=== PATIENT | male | born 1995 | race African-American/Black ===

== ENCOUNTER 2023-12-25 21:31 | Emergency (ER) | payer SELFPAY ==
[2023-12-25 21:34] VITALS: BP 111/83; BP 140/102; PULSE 107; PULSE 115; RESP 18; O2SAT 94; O2SAT 97; BMI 38.6
--- NOTE | 2023-12-25 21:51 | ED.GENADULT ---
HPI - General Adult General Chief complaint: Dyspnea Stated complaint: SOB,CHEST PAIN Time Seen by Provider: 12/25/23 21:35 Source: patient Mode of arrival: EMS Limitations: other (Deaf mute) History of Present Illness HPI narrative: Patient comes to the emergency room via ambulance complaining of an asthma exacerbation. History was obtained via [facility] mother tester. Patient states that he ran out of his medication approximately a month ago. Patient also states that he has not had any of his diabetic medications for about a month as well. Patient states that he is in the process of moving between [place], [place] to [place]. Patient states that he ran out of his inhaler. According to EMS, they gave him a DuoNeb treatment, no steroids, patient states that breathing corbett he is back to baseline. Per EMS, patient's glucose is above 300. Related Data Previous Rx's Medication Instructions Recorded albuterol sulfate 90 mcg/actuation 2 puff inhalation Q4-6H PRN 12/25/23 aerosol inhaler shortness of breath or wheezing #8.5 grams dulaglutide 4.5 mg/0.5 mL 4.5 mg (0.5 mL) subcut QWEEK #2 mL 12/25/23 subcutaneous pen injector (Trulicity) glucagon HCl 1 mg solution for 1 mg subcut Q20M PRN hypoglycemia 12/25/23 injection (Glucagon (HCl) #1 ea Emergency Kit) metformin 500 mg tablet 500 mg PO BID #90 tabs 12/25/23 Allergies Allergy/AdvReac Type Severity Reaction Status Date / Time No Known Allergies Allergy Verified 12/25/23 21:47 Review of Systems Review of Systems: Constitutional : No Weight loss, No Fever, No Chills, No Night Sweats, No Fatigue, No Malaise ENT/Mouth : No Hearing loss, No Ear Pain, No Nasal Congestion, No Sinus Pain, No Hoarseness, No sore throat, No Rhinorrhea, No Swallowing Difficulty Eyes: No Eye Pain, No Swelling, No Redness, No Foreign Body, No Discharge, No Vision Changes Cardiovascular : No Chest Pain, No SOB, No Dyspnea on Exertion, No Orthopnea, No Edema, No Palpitations Respiratory : No Cough, No Sputum, complaining of Wheezing, No Smoke Exposure, No Dyspnea Gastrointestinal : No Nausea, No Vomiting, No Diarrhea, No Constipation, No abdominal Pain, No Hematochezia, No Melena Genitourinary : no irregular bleeding, No Dysuria, No Urinary Frequency, No Hematuria, No Urinary Incontinence, No Urgency, No Flank Pain, No Urinary Flow Changes, No Hesitancy Musculoskeletal : No joint pain, No Myalgias, No Joint Swelling Skin : No Skin Lesions, No rash Neuro : No Weakness, No Numbness, No Paresthesias, No Loss of Consciousness, No Dizziness, No Headache Psych : No Anxiety/Panic, No Depression, No SI/HI/AH/VH, No Social Issues, Heme/Lymph: No Bruising, No Bleeding,No Lymphadenopathy Endocrine : Complaining of high blood sugar, No Polyuria, No Polydipsia, No Temperature Intolerance [facility] Past Medical History Medical History (Updated 12/25/23 @ 22:01 by Yarelis Lopez MD) Type 2 diabetes mellitus Asthma Social History Social History Smoked in Last 30 Days: No Use of substances other than those prescribed or required for medical reasons: No Advance Directives: No Advance Directives Information Provided: No Physical Exam ED Vital Signs: Vital Signs - 24 hr 12/25/23 21:34 Pulse Rate 107 H Respiratory Rate 18 Blood Pressure 111/83 Pulse Oximetry 97 Oxygen Delivery Method Room Air BMI result Body Mass Index 38.6 Const Other: Appearance: Alert. Oriented X3. No acute distress. Eyes: Pupils equal, round and reactive to light. ENT: Pharynx normal. Neck: Normal inspection. Neck supple. No lymph nodes noted. No crepitus CVS: Normal heart rate and rhythm. Pulses normal. Normal S1 and S2 Respiratory: No respiratory distress. Breath sounds normal. No Wheezing. No rales Abdomen: Soft and nontender. No rigidity. No distention. Skin: Skin warm and dry. Normal skin color. Normal skin turgor. Extremities: No lower extremity edema. No Lacerations. No Rash Neuro: Oriented X 3. No motor deficit. No sensory deficit. Moving all extremities. No slurred speech. CN 2 through 12 grossly intact Psych: calm, cooperative, normal affect Course Course Course Narrative: At this time, patient is no longer wheezing, oxygen saturation 95%. -we were unable to get in touch with the patient's pharmacy, as it is closed now in [place]. Patient requesting paper scripts -patient will be given subcutaneous insulin and point of care will be rechecked Medications Administered Discontinued Medications Generic Name Dose Route Start Last Admin Trade Name Freq PRN Reason Stop Dose Admin Insulin Human Lispro 10 unit 12/25/23 21:55 12/25/23 22:18 Insulin Lispro 100 Unit/Ml 3 Ml Vial SUBCUT 12/25/23 21:56 Not Given ONCE ONE Prednisone 60 mg 12/25/23 21:47 12/25/23 22:17 Prednisone 20 Mg Tablet PO 12/25/23 21:48 60 mg ONCE ONE Administration Medical Decision Making Medical Decision Making [facility] Narrative: -at this time, patient feeling much better. Patient requesting medication refills -as mentioned above, patient already received a DuoNeb, patient's breathing is back to normal. -I was informed by the patient's nurse that before they gave any medication to the patient, his glucose was 255. At this time, no need for any medications or fluids for hyperglycemia. Differential Diagnosis Differential Diagnoses: The differential diagnosis associated with the presentation includes (Asthma exacerbation, viral syndrome, hyperglycemia, medication noncompliance) Lab Data Labs: Lab Results 12/25/23 Range/Units 22:09 POC Glucose 252 H (60-115) mg/dL Critical Care Time Critical Care Time Critical Care Time: Yes Total Critical Care Time: 45 Attestation: I have personally provided critical care time. Time includes review of lab data, radiology results, discussion with consultants, and monitoring for potential decompensation. Intervention performed as documented. Discharge Plan Discharge Clinical Impression: Asthma, Hyperglycemia Patient Disposition: Home, Self-Care Instructions: Asthma (ED), Diabetic Hyperglycemia (ED) Additional Instructions: Please follow-up with your primary care physician tomorrow. If you have any worsening or new symptoms, please return to the emergency room or call 911 Prescriptions: New metformin 500 mg tablet 500 mg PO BID Qty: 90 1RF Trulicity 4.5 mg/0.5 mL pen injector 4.5 mg subcut QWEEK Qty: 2 1RF albuterol sulfate 90 mcg/actuation HFA aerosol inhaler 2 puff inhalation Q4-6H PRN (Reason: shortness of breath or wheezing) Qty: 8.5 1RF glucagon HCl [Glucagon (HCl) Emergency Kit] 1 mg recon soln 1 mg subcut Q20M PRN (Reason: hypoglycemia) Qty: 1 0RF Rx Instructions: until target blood sugar attained
[2023-12-25 22:14] LABS: Glucose, Whole Blood 252 mg/dL (60-115)
[2023-12-25] MEDS: predniSONE 20 MG TABLET 60 MG PO (22:17)
--- NOTE | 2023-12-25 22:18 | PC.NURSE ---
After check of blood glucose, insulin order was cancelled by provider.
[2023-12-25 23:45] VITALS: BP 118/82; PULSE 98; RESP 18; O2SAT 97
== END 2023-12-25 23:47 | disposition home or self-care (01) ==
PROVIDERS: Emergency Provider Emergency Medicine
DX: R06.02 Shortness of breath (principal); J45.909 Unspecified asthma, uncomplicated; R73.9 Hyperglycemia, unspecified
CPT/HCPCS: 82947; 99283; 99284

== ENCOUNTER 2023-12-26 05:22 | Emergency (ER) | payer SELFPAY ==
[2023-12-26 05:26] VITALS: BP 128/79; PULSE 104; RESP 18; TEMP 36.4; O2SAT 95; BMI 46.1
[2023-12-26 05:42] LABS: Glucose, Whole Blood 460 mg/dL (60-115)
--- NOTE | 2023-12-26 07:01 | ED.GENADULT ---
HPI - General Adult General Chief complaint: General Medical Stated complaint: Blood sugar check Time Seen by Provider: 12/26/23 07:01 History of Present Illness HPI narrative: The patient is hard of hearing and communicates by sign language. He was interviewed using an ASL volunteer assistant on our computer volunteer assistant. The patient was here yesterday with a complaint of shortness of breath. He was felt to have an exacerbation of his asthma. He was treated with an updraft and given a dose of prednisone. He apparently is currently uninsured. He apparently recently moved to this area from [place], [place] with the plan of relocating to this area. He tells me that he returned to the emergency room because he could feel that his blood sugar was high. He was not really able to tell me how he could tell. He says that he has been on a lot of medications for his diabetes in the past. He has been on medications for 10 years he says. He says that he normally takes 100 units of Lantus insulin daily. He has not had this for at least a week. Related Data Previous Rx's Medication Instructions Recorded albuterol sulfate 90 mcg/actuation 2 puff inhalation Q4-6H PRN 12/25/23 aerosol inhaler shortness of breath or wheezing #8.5 grams dulaglutide 4.5 mg/0.5 mL 4.5 mg (0.5 mL) subcut QWEEK #2 mL 12/25/23 subcutaneous pen injector (Trulicity) glucagon HCl 1 mg solution for 1 mg subcut Q20M PRN hypoglycemia 12/25/23 injection (Glucagon (HCl) #1 ea Emergency Kit) metformin 500 mg tablet 500 mg PO BID #90 tabs 12/25/23 Allergies Allergy/AdvReac Type Severity Reaction Status Date / Time No Known Allergies Allergy Verified 12/25/23 21:47 Review of Systems Review of Systems: Yes all other systems are reviewed and are negative [facility] Past Medical History Medical History (Updated 12/26/23 @ 13:01 by Cesar Patel MD) Type 2 diabetes mellitus Asthma Social History Social History Smoked in Last 30 Days: No Use of substances other than those prescribed or required for medical reasons: No Advance Directives: No Advance Directives Information Provided: No Physical Exam ED Vital Signs: Vital Signs - 24 hr 12/26/23 05:26 12/26/23 08:32 Temperature 97.6 F Pulse Rate 104 H 100 Respiratory Rate 18 18 Blood Pressure 128/79 127/86 Pulse Oximetry 95 94 Oxygen Delivery Method Room Air Room Air BMI result Body Mass Index 46.1 Const Other: The patient was sleeping initially unsteady was very tired but was ultimately awake and alert and appropriate. With speech, lip reading, and we also used the senior interior designer machine. He has a very large man with a BMI of 46. He does not appear in acute distress HENMT Other: Face is symmetrical. Mucous membranes moist Eyes Other: Pupils are round equal, conjunctivae clear, extraocular movements intact Neck Other: Moving his neck easily Resp Effort & Inspection: normal respiratory effort Auscultation: clear to auscultation bilaterally Cardio Rate: regular rate Rhythm: regular rhythm Heart sounds: S1 normal heart sound present and S2 normal heart sound present GI Other: Abdomen is soft and nontender Skin Other: Skin is dry and unremarkable Neuro Other: The patient is hard of hearing but otherwise neurologically intact with a normal gait. Extrem Other: No pitting edema Medications Administered Discontinued Medications Generic Name Dose Route Start Last Admin Trade Name Titusq PRN Reason Stop Dose Admin Insulin Glargine 40 unit 12/26/23 08:30 12/26/23 09:26 Insulin Glargine,Hum.Rec.Anlog 100 Unit/Ml 10 Ml Vial SUBCUT 12/26/23 08:31 40 unit ONCE ONE Administration Insulin Glargine 20 unit 12/26/23 12:32 12/26/23 13:05 Insulin Glargine,Hum.Rec.Anlog 100 Unit/Ml 10 Ml Vial SUBCUT 12/26/23 12:33 20 unit ONCE ONE Administration Insulin Human Lispro 6 unit 12/26/23 07:45 12/26/23 08:08 Insulin Lispro 100 Unit/Ml 3 Ml Vial SUBCUT 12/26/23 07:46 6 unit ONCE ONE Administration Insulin Human Lispro 4 unit 12/26/23 12:32 12/26/23 13:06 Insulin Lispro 100 Unit/Ml 3 Ml Vial SUBCUT 12/26/23 12:33 4 unit ONCE ONE Administration Metformin HCl 500 mg 12/26/23 07:23 12/26/23 08:08 Metformin Hcl 500 Mg Tablet PO 12/26/23 07:24 500 mg ONCE ONE Administration Medical Decision Making Medical Decision Making MDM Narrative: The patient is a 28-year-old who describes a 10 year history of type 2 diabetes. He normally lives in [place] and does not have access to his usual medications. He was seen here yesterday for an asthma exacerbation and was given a dose of prednisone which has probably exacerbated his hyperglycemia. He has not seem in DKA . He seems to be hyperglycemic without clear complication of any kind. The patient requested insulin. He says that he normally takes 100 units of Lantus insulin daily. He has not had this for about a week. I was somewhat shy about giving such a large dose. The patient was unable to give me the name of any hospital in [facility] which might be able to confirm his dosages. The patient was given 40 units of Lantus insulin and 6 units of lispro. His blood sugars came down from 517 to ultimately 310. The patient was still concerned that his blood sugars were as high as they were and he requested additional insulin. He was then given 20 units of addition Lantus and 4 units of additional lispro. He then indicated urged. He says that he is going to try to make arrangements to fly back to [facility] or tomorrow. Lab Data 12/26/23 08:40 12/26/23 08:40 Labs: Lab Results 12/26/23 12/26/23 12/26/23 Range/Units 05:31 07:34 08:40 WBC 6.2 (4.8-10.8) X10*3/uL RBC 5.24 (4.60-5.80) X10*6/uL Hgb 14.8 (14.0-18.0) g/dl Hct 44.2 (42.0-52.0) % MCV 84.4 (80.0-98.0) fL MCH 28.2 (27.0-33.0) pg MCHC 33.5 (31.0-36.0) g/dl RDW 13.2 (11.0-16.0) % Plt Count 236 (160-400) X10*3/uL MPV 10.4 (9.4-12.4) fL Immature Gran % (Auto) 0.3 (0.0-0.4) % Neut % (Auto) 84.2 H (45-73) % Lymph % (Auto) 12.1 L (20-40) % [place] % (Auto) 2.9 (2-11) % Eos % (Auto) 0.0 (0-4) % Baso % (Auto) 0.5 (0-2) % Lymph # (Auto) 0.8 L (1.2-4.9) X10*3/uL [place] # (Auto) 0.2 (0.1-1.2) X10*3/uL Eos # (Auto) 0.0 (0.0-0.4) X10*3/uL Baso # (Auto) 0.0 (0.0-0.2) X10*3/uL Abs Immat Gran (auto) 0.02 (0.00-0.03) X10*3/uL Absolute Neuts (auto) 5.2 (2.0-8.3) x10*3/uL Absolute Nucleated RBC 0.000 (0.0-0.012) X10*3/uL Nucleated RBC % (auto) 0.0 (0.0-0.2) /100WBC Sodium 139 (135-145) mmol/L Potassium 4.3 (3.3-5.1) mmol/L Chloride 105 (96-108) mmol/L Carbon Dioxide 22 (22-29) mmol/L Anion Gap 16 (12-20) BUN 16 (9-16) mg/dL Creatinine 1.40 (0.5-1.4) mg/dL Estim Creat Clear Calc 117.8 Estimated GFR > 60 POC Glucose 460 H* 517 H* (60-115) mg/dL Random Glucose 509 H* (60-115) mg/dL Calcium 9.6 (8.4-10.2) mg/dL Total Bilirubin 1.0 (0.0-1.0) mg/dL Direct Bilirubin 0.3 (0.0-0.5) mg/dL AST 29 (5-37) U/L ALT 34 (0-40) U/L Alkaline Phosphatase 93 (39-117) U/L Total Protein 7.5 (6.5-8.0) g/dL Albumin 4.6 (3.5-5.0) g/dL 12/26/23 Range/Units 12:02 WBC (4.8-10.8) X10*3/uL RBC (4.60-5.80) X10*6/uL Hgb (14.0-18.0) g/dl Hct (42.0-52.0) % MCV (80.0-98.0) fL MCH (27.0-33.0) pg MCHC (31.0-36.0) g/dl RDW (11.0-16.0) % Plt Count (160-400) X10*3/uL MPV (9.4-12.4) fL Immature Gran % (Auto) (0.0-0.4) % Neut % (Auto) (45-73) % Lymph % (Auto) (20-40) % [place] % (Auto) (2-11) % Eos % (Auto) (0-4) % Baso % (Auto) (0-2) % Lymph # (Auto) (1.2-4.9) X10*3/uL [place] # (Auto) (0.1-1.2) X10*3/uL Eos # (Auto) (0.0-0.4) X10*3/uL Baso # (Auto) (0.0-0.2) X10*3/uL Abs Immat Gran (auto) (0.00-0.03) X10*3/uL Absolute Neuts (auto) (2.0-8.3) x10*3/uL Absolute Nucleated RBC (0.0-0.012) X10*3/uL Nucleated RBC % (auto) (0.0-0.2) /100WBC Sodium (135-145) mmol/L Potassium (3.3-5.1) mmol/L Chloride (96-108) mmol/L Carbon Dioxide (22-29) mmol/L Anion Gap (12-20) BUN (9-16) mg/dL Creatinine (0.5-1.4) mg/dL Estim Creat Clear Calc Estimated GFR POC Glucose 310 H (60-115) mg/dL Random Glucose (60-115) mg/dL Calcium (8.4-10.2) mg/dL Total Bilirubin (0.0-1.0) mg/dL Direct Bilirubin (0.0-0.5) mg/dL AST (5-37) U/L ALT (0-40) U/L Alkaline Phosphatase (39-117) U/L Total Protein (6.5-8.0) g/dL Albumin (3.5-5.0) g/dL Discharge Plan Discharge Clinical Impression: Acute hyperglycemia, Diabetes mellitus Patient Disposition: Home, Self-Care Additional Instructions: You have received 500 mg of metformin, a total of 60 mg of Lantus insulin, and a total of 10 units of Lispro insulin. Please follow-up soon with your regular doctors in [place] to resume your normal medications. Go to the nearest emergency room if you feel significantly worse. Prescriptions: No Action metformin 500 mg tablet 500 mg PO BID Qty: 90 1RF Trulicity 4.5 mg/0.5 mL pen injector 4.5 mg subcut QWEEK Qty: 2 1RF albuterol sulfate 90 mcg/actuation HFA aerosol inhaler 2 puff inhalation Q4-6H PRN (Reason: shortness of breath or wheezing) Qty: 8.5 1RF glucagon HCl [Glucagon (HCl) Emergency Kit] 1 mg recon soln 1 mg subcut Q20M PRN (Reason: hypoglycemia) Qty: 1 0RF Rx Instructions: until target blood sugar attained Interventions: ED Discharge Assessment Last Done: 12/26/23 13:08 Discharge Date/Time: 12/26/23 13:16
[2023-12-26 07:38] LABS: Glucose, Whole Blood 517 mg/dL (60-115)
[2023-12-26] MEDS: metFORMIN HCl 500 MG TABLET PO (08:08)
[2023-12-26] MEDS: Insulin Lispro 100 UNIT/ML 3 ML VIAL 6 UNIT SUBCUT (08:08)
--- NOTE | 2023-12-26 08:14 | PC.NURSE ---
POC 517 Dr. Guerrero made aware, 6u Lispro sub q odered and was given as documented. Cesar is at the pt's bedside at this time.
[2023-12-26 08:32] VITALS: BP 127/86; PULSE 100; RESP 18; O2SAT 94
[2023-12-26 08:47] LABS: MANUAL DIFF FLAG NO
[2023-12-26 08:49] LABS: Basophils Percent Auto 0.5 % (0-2); Hematocrit 44.2 % (42.0-52.0); Hemoglobin 14.8 g/dl (14.0-18.0); Imm Gran Abs Auto 0.02 X10*3/uL (0.00-0.03); Imm Gran Pct Auto 0.3 % (0.0-0.4); Lymphocytes Absolute Auto 0.8 X10*3/uL (1.2-4.9); Lymphocytes Percent Auto 12.1 % (20-40); Mean Corpuscular HGB Conc 33.5 g/dl (31.0-36.0); Mean Corpuscular Hemoglobin 28.2 pg (27.0-33.0); Mean Corpuscular Volume 84.4 fL (80.0-98.0); Mean Platelet Volume 10.4 fL (9.4-12.4); Monocytes Absolute Auto 0.2 X10*3/uL (0.1-1.2); Monocytes Percent Auto 2.9 % (2-11); Neutrophils Absolute Auto 5.2 x10*3/uL (2.0-8.3); Neutrophils Percent Auto 84.2 % (45-73); Platelet Count 236 X10*3/uL (160-400); Red Blood Count 5.24 X10*6/uL (4.60-5.80); Red Cell Distribution Width 13.2 % (11.0-16.0); White Blood Count 6.2 X10*3/uL (4.8-10.8)
[2023-12-26 09:04] LABS: Alanine Aminotransferase 34 U/L (0-40); Albumin Level 4.6 g/dL (3.5-5.0); Alkaline Phosphatase 93 U/L (39-117); Anion Gap 16 (12-20); Aspartate Amino Transferase 29 U/L (5-37); Bilirubin Direct 0.3 mg/dL (0.0-0.5); Blood Urea Nitrogen 16 mg/dL (9-16); Calcium 9.6 mg/dL (8.4-10.2); Carbon Dioxide 22 mmol/L (22-29); Chloride 105 mmol/L (96-108); Creatinine Clr Calc Pharmacy 117.8; Estimated Glomerular Filt Rate > 60; Glucose Random 509 mg/dL (60-115); Potassium 4.3 mmol/L (3.3-5.1); Sodium 139 mmol/L (135-145); Total Protein 7.5 g/dL (6.5-8.0)
[2023-12-26] MEDS: Insulin Glargine,Hum.rec.anlog 100 UNIT/ML 10 ML VIAL 40 UNIT SUBCUT (09:26)
--- NOTE | 2023-12-26 09:36 | PC.NURSE ---
40u Lantus given as documented.
--- NOTE | 2023-12-26 11:25 | MHC.CM.ED ---
Received case management consult from Dr Patel. Patient came to the ER due to high blood sugar. Patient was in [facility] [place] [place] 12/25. Patient recently relocated from [place] and is deaf, uses ASL to communicate. Patient has no insurance. Patient was d/c'd with metformin and Trulicity. Patient was not able to fill these medications due to not having insurance. [facility] [place] [place] financial counselors were notified. Janet met with patient. Patient is not interested in completing LOC[employer] application because he will be returning to [place] tomorrow. T/W spoke with [facility] [place] [place] outpatient pharmacy. They do not have Trucility in stock. Metformin will be about $6. Dr Patel made aware. Continue to monitor for d/c needs.
[2023-12-26 12:07] LABS: Glucose, Whole Blood 310 mg/dL (60-115)
[2023-12-26] MEDS: Insulin Glargine,Hum.rec.anlog 100 UNIT/ML 10 ML VIAL 20 UNIT SUBCUT (13:05)
[2023-12-26] MEDS: Insulin Lispro 100 UNIT/ML 3 ML VIAL SUBCUT (13:06)
--- NOTE | 2023-12-26 13:09 | PC.NURSE ---
PT REQUESTED TO GET INSULIN, A PRESCRIPTION FOR METFORMIN AND TO BE D/C'd. HE SAID HIS FRIEND IS COMING TO PICK HIM UP IN 15 MINS AND PLANS TO BUY HIM A TICKET TO GO BACK TO [place]. PT REFUSED VS I HAVE TO GET GOING . SUB Q INSULIN GIVEN DOCUMENTED. DISCHARGE PAPERS GIVEN. PT AMBULATED TO WAITING ROOM WITH HIS BELONGINGS.
== END 2023-12-26 13:16 | disposition home or self-care (01) ==
PROVIDERS: Emergency Provider Emergency Medicine
DX: E11.65 Type 2 diabetes mellitus with hyperglycemia (principal); R06.02 Shortness of breath; E66.9 Obesity, unspecified; Z68.42 Body mass index [BMI] 45.0-49.9, adult; Z79.4 Long term (current) use of insulin; Z79.85 Long-term (current) use of injectable non-insulin antidiabetic drugs; Z79.84 Long term (current) use of oral hypoglycemic drugs
CPT/HCPCS: 36415; 80048; 80076; 82947; 85025; 99284